=== PATIENT | female | born 1990 | race Caucasian/White ===

== ENCOUNTER 2022-10-20 15:12 | Emergency (ER) | payer MEDICAID, OTHER ==
[~2022-10-20] VITALS: Ht 157.5 cm; Wt 81.8 kg
[~2022-10-20 15:12] MED LIST: ORPH100T4 PO
[2022-10-20] MEDS ORDERED: LIDOcaine 1% W/epiNEPHrine 1:100,000 20ml vial IJ ONE (15:25)
[2022-10-20] MEDS ORDERED: TETanus/Pertussis (Acell)/Diphther VAC/PF (Tdap-Adult) 0.5ml syringe IMVAC ONE (15:25)
[2022-10-20] MEDS ORDERED: LORazepam 2 mg/ml vial IM ONE (15:25)
[2022-10-20 15:50] VITALS: BP 122/69
[2022-10-20] MEDS ORDERED: ceFAZolin 1gm IM kit IM ONE (17:20)
[2022-10-20] MEDS ORDERED: ONDA4TAB12 PO (17:53)
[2022-10-20] MEDS ORDERED: CEPH250T PO (17:53)
[2022-10-20] MEDS ORDERED: HYDR-3965 PO (17:53)
== END 2022-10-20 18:15 | disposition home or self-care (01) ==
LOC: ER 15:12
DX: S62.303A Unspecified fracture of third metacarpal bone, left hand, initial encounter for closed fracture (principal); S61.012A Laceration without foreign body of left thumb without damage to nail, initial encounter; S61.211A Laceration without foreign body of left index finger without damage to nail, initial encounter; Z88.0 Allergy status to penicillin; Z88.8 Allergy status to other drugs, medicaments and biological substances; W26.0XXA Contact with knife, initial encounter; Y93.89 Activity, other specified; Y92.89 Other specified places as the place of occurrence of the external cause; Y99.8 Other external cause status
CPT/HCPCS: 12002; 73130; 90471; 90715; 96372; 99284; A6222; J0690; J2060; A6258; A6449